=== PATIENT | male | born 1970 | race Hispanic/Latino ===

== ENCOUNTER 2018-07-24 19:09 | Emergency (ER) | payer MEDICARE ==
[~2018-07-24] VITALS: Ht 157.5 cm; Wt 79.4 kg
== END 2018-07-24 20:03 | disposition home or self-care (01) ==
LOC: ER 19:09
DX: M54.5 Low back pain (principal); S39.012A Strain of muscle, fascia and tendon of lower back, initial encounter; G40.909 Epilepsy, unspecified, not intractable, without status epilepticus
CPT/HCPCS: 99283